=== PATIENT | male | born 1960 | race Caucasian/White ===

== ENCOUNTER → 2024-08-13 13:44 | Outpatient (REF) | payer OTHER, SELFPAY | LOC: EMG 13:44 | PROVIDERS: ATTENDING PHYSICIAN Orthopaedic Surgery; FAMILY PHYSICIAN Family Medicine | DX: R20.0 Anesthesia of skin (principal) | CPT/HCPCS: 95886; 95911 ==

== ENCOUNTER → 2024-09-24 07:08 | Outpatient (REF) | payer MEDICARE, SELFPAY | LOC: PAVMRI 07:08 | PROVIDERS: ATTENDING PHYSICIAN Orthopaedic Surgery; FAMILY PHYSICIAN Family Medicine | DX: M54.12 Radiculopathy, cervical region (principal) | CPT/HCPCS: 72141 ==

== ENCOUNTER 2025-08-30 17:27 | Day surgery (SDC) | payer MEDICARE, SELFPAY ==
[2025-08-30] VITALS (9 sets, daily range): BP systolic 107–145; BP diastolic 67–76; BMI 25.9
--- NOTE | 2025-08-30 10:42 | ED.GENMED ---
History of Present Illness
<Viktor Beltran PA-C - Last Filed: 08/30/25 14:41>
General
Chief Complaint: Chest Pain
Source: patient
Exam Limitations: none
Time Seen by Provider: 08/30/25 10:31
History of Present Illness
History of Present Illness:
64-year-old male presents complaining of ongoing chest discomfort. 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 He notes ongoing symptoms since then. He has a history of coronary artery disease. He had a
catheterization 5 years ago. Symptoms are in the center of his chest without radiation. He denies shortness of breath. Pain is not pleuritic. No recent extended travel or surgery. He took a baby aspirin this morning. He saw the cardiology team
today as an outpatient but was sent here for further evaluation.
Past History
<Viktor Beltran PA-C - Last Filed: 08/30/25 14:41>
Past History
ED Past Medical History: GERD and Hypercholesterolemia
Social History
Tobacco: Non-smoker
Personal:
Living: with family
Phy Exam
<Viktor Beltran PA-C - Last Filed: 08/30/25 14:41>
Physical Exam
Physical Exam:
General: Well-appearing male no acute respiratory distress HEENT: Normal cephalic atraumatic
Heart: Regular rate and rhythm
Lungs: Clear no wheeze
Extremities: No cyanosis or edema
Skin warm no rash
Scores
<Viktor Beltran PA-C - Last Filed: 08/30/25 14:41>
Heart Score for Chest Pain Patients
STEMI patient?: No
History: Moderately Suspicious
ECG: Normal
Age: >/= 65 years
Risk Factors: >/= 3 Risk Factors or History of CAD
Troponin: </= Normal Limit
Heart Score for Chest Pain Patients: 5
Heart Score Risk: 20.3% MACE over next 6 weeks
Course
<Viktor Beltran PA-C - Last Filed: 08/30/25 14:41>
Orders/Labs/Results
Orders:
Orders
08/30/25 Lunch
NPO
Allow oral meds: Yes
Allow clear liquids: No
08/30/25 10:06
ECG [Electrocardiogram (*1)] Urgent
Reason for Study: Chest Pain
EKG- Treatment ONCE
08/30/25 10:40
Aspirin Chewable [Low Strength Aspirin] 243 mg PO NOW STA
08/30/25 10:45
Heparin 48110 Units/250 ml 25,000 units in 250 ml .ROUTE .STK-MED
08/30/25 10:48
Heparin 4,000 units IV NOW STA
08/30/25 10:51
Complete Blood Count/With Diff Urgent
Comprehensive Metabolic Panel Urgent
PTT Urgent
Comment: Obtain baseline before beginning heparin infusion if not already collected
Troponin I Urgent
Nitroglycerin Sublingual [Nitrostat (Sublingual)] 0.4 mg SL [id number] PRN
08/30/25 11:00
Heparin 30114 Units/250 ml 25,000 units in 250 ml IV PER PROTOCOL
Weight to be used for heparin protocol in kilograms (kg):: 77.3
Protocol:: Cardiac Tx/Acute Coronary
PTT Goal Range to be used:: PTT 73 to 111 seconds
Order type:: Initial
INITIAL Infusion Dose (UNITS/KG/hr) & then follow protocol:: 12 units/kg/hr
Infusion Dose in UNITS/hr & then follow protocol (UNITS/hr):: 950
INFUSION RATE in mL/hr & then follow protocol (mL/hr):: 9.5
PTT less than or equal to 64 seconds:: Increase rate by 200 units/hr (+ 2 mL/hr)
PTT 64.1 to 72.9 seconds:: Increase rate by 100 units/hr (+ 1 mL/hr)
PTT 73 to 111 seconds:: Target Range. No change in rate.
PTT 111.1 to 130.9 seconds:: Decrease rate by 100 units/hr (- 1 mL/hr)
PTT 131 to 199.9 seconds:: HOLD for 1 hr. Then decrease rate by 200 units/hr (- 2 mL/hr)
PTT greater than or equal to 200 seconds:: HOLD for 2 hrs & Notify Provider. Then decrease by 200 units/hr (-
2 mL/hr)
Lab follow-up:: Each change, PTT q6h until 2 consecutive are therapeutic. Then PTT
daily.
08/30/25 11:27
Admit/Transfer Patient As Directed
Co-Sign Provider:
Level of Care: Post Proc/Surg Recovery
Assign to:: IVU
Physician / Group: Ton
Diagnosis: unstable angina
Expected length of stay greater than two midnights?: No
Reason for Overnight Stay: Standard of Care
PRN Pain Medication Management As Directed
May give lesser potent ordered pain med per pt: Yes
preference::
Protocol:: Medication orders for pain may be administered in a
manner that supports deferring to patient preference
when the pt is:
-Requesting an ordered lesser potent pain medication.
Least to most potent pain medications are defined as:
acetaminophen < NSAID < tramadol < opioids (morphine,
oxycodone, hydromorphone).
- Requesting a lesser dose of the same medication IF
ORDERED.
- Requesting a less intrusive route of administration
if both routes are prescribed by the provider (PO <
IV).
08/30/25 14:15
Vital Signs As Directed
Frequency: Per unit guidelines
08/30/25 17:35
PTT Urgent
Abnormal Lab Results
08/30/25
10:51
Absolute Monos (auto) 0.7 H 10^3/uL
(0.1-0.6)
Lymphocytes % 16.8 L %
(20.5-51.1)
BUN 24 H mg/dl
(9-20)
08/30/25 10:51
08/30/25 10:51
Vital Signs
Initial and Last Documented VS:
Initial Vital Signs
Temp Pulse Resp BP Pulse Ox
98.1 F 54 18 145/72 100
08/30/25 10:03 08/30/25 10:03 08/30/25 10:03 08/30/25 10:03 08/30/25 10:03
Last Documented Vital Signs
Temp Pulse Resp BP Pulse Ox
98.1 F 65 12 135/74 98
08/30/25 10:03 08/30/25 13:00 08/30/25 13:00 08/30/25 12:00 08/30/25 13:00
<Jimbo Bush, DO - Last Filed: 08/30/25 11:17>
Orders/Labs/Results
Orders:
Orders
08/30/25 Lunch
NPO
Allow oral meds: Yes
Allow clear liquids: No
08/30/25 10:06
ECG [Electrocardiogram (*1)] Urgent
Reason for Study: Chest Pain
EKG- Treatment ONCE
08/30/25 10:40
Aspirin Chewable [Low Strength Aspirin] 243 mg PO NOW STA
08/30/25 10:45
Heparin 38332 Units/250 ml 25,000 units in 250 ml .ROUTE .STK-MED
08/30/25 10:48
Heparin 4,000 units IV NOW STA
08/30/25 10:51
Complete Blood Count/With Diff Urgent
Comprehensive Metabolic Panel Urgent
PTT Urgent
Comment: Obtain baseline before beginning heparin infusion if not already collected
Troponin I Urgent
Nitroglycerin Sublingual [Nitrostat (Sublingual)] 0.4 mg SL [id number] PRN
08/30/25 11:00
Heparin 99827 Units/250 ml 25,000 units in 250 ml IV PER PROTOCOL
Weight to be used for heparin protocol in kilograms (kg):: 77.3
Protocol:: Cardiac Tx/Acute Coronary
PTT Goal Range to be used:: PTT 73 to 111 seconds
Order type:: Initial
INITIAL Infusion Dose (UNITS/KG/hr) & then follow protocol:: 12 units/kg/hr
Infusion Dose in UNITS/hr & then follow protocol (UNITS/hr):: 950
INFUSION RATE in mL/hr & then follow protocol (mL/hr):: 9.5
PTT less than or equal to 64 seconds:: Increase rate by 200 units/hr (+ 2 mL/hr)
PTT 64.1 to 72.9 seconds:: Increase rate by 100 units/hr (+ 1 mL/hr)
PTT 73 to 111 seconds:: Target Range. No change in rate.
PTT 111.1 to 130.9 seconds:: Decrease rate by 100 units/hr (- 1 mL/hr)
PTT 131 to 199.9 seconds:: HOLD for 1 hr. Then decrease rate by 200 units/hr (- 2 mL/hr)
PTT greater than or equal to 200 seconds:: HOLD for 2 hrs & Notify Provider. Then decrease by 200 units/hr (-
2 mL/hr)
Lab follow-up:: Each change, PTT q6h until 2 consecutive are therapeutic. Then PTT
daily.
08/30/25 11:27
Admit/Transfer Patient As Directed
Co-Sign Provider:
Level of Care: Post Proc/Surg Recovery
Assign to:: IVU
[facility]
Diagnosis: unstable angina
Expected length of stay greater than two midnights?: No
Reason for Overnight Stay: Standard of Care
PRN Pain Medication Management As Directed
May give lesser potent ordered pain med per pt: Yes
preference::
Protocol:: Medication orders for pain may be administered in a
manner that supports deferring to patient preference
when the pt is:
-Requesting an ordered lesser potent pain medication.
Least to most potent pain medications are defined as:
acetaminophen < NSAID < tramadol < opioids (morphine,
oxycodone, hydromorphone).
- Requesting a lesser dose of the same medication IF
ORDERED.
- Requesting a less intrusive route of administration
if both routes are prescribed by the provider (PO <
IV).
08/30/25 14:15
Vital Signs As Directed
Frequency: Per unit guidelines
08/30/25 17:35
PTT Urgent
Abnormal Lab Results
08/30/25
10:51
Absolute Monos (auto) 0.7 H 10^3/uL
(0.1-0.6)
Lymphocytes % 16.8 L %
(20.5-51.1)
BUN 24 H mg/dl
(9-20)
08/30/25 10:51
08/30/25 10:51
Vital Signs
Initial and Last Documented VS:
Initial Vital Signs
Temp Pulse Resp BP Pulse Ox
98.1 F 54 18 145/72 100
08/30/25 10:03 08/30/25 10:03 08/30/25 10:03 08/30/25 10:03 08/30/25 10:03
Last Documented Vital Signs
Temp Pulse Resp BP Pulse Ox
98.1 F 65 12 135/74 98
08/30/25 10:03 08/30/25 13:00 08/30/25 13:00 08/30/25 12:00 08/30/25 13:00
<Viktor Beltran PA-C - Last Filed: 08/30/25 14:41>
MDM/Problems Addressed
Differential Diagnosis Includes:
Patient with ongoing chest discomfort with history coronary artery disease presented in referral from cardiology office for admission and for him to be taken to the [facility]. EKG on triage here shows sinus bradycardia without ischemic changes.
Labs pending including troponin. Contacted cardiology who said heparin.
<Viktor Beltran PA-C - Last Filed: 08/30/25 14:41>
*Pulse Oximetry
SaO2: 100
Oxygen Mode of Delivery: Room air
Patient hypoxic: no
*Critical Care Note
Total Time (30-74mins, 75-104mins- exclusive of procedures): Not Applicable
ED Attending Note
<Viktor Beltran PA-C - Last Filed: 08/30/25 14:41>
-
Portions of this chart may have been created with voice recognition software.� Occasional wrong word or��sound alike� substitutions may have occurred due to the inherent limitations of voice recognition software.
<Jimbo Bush DO - Last Filed: 08/30/25 11:17>
ED Attending Note
Patient seen and examined by attending physician: Yes
I performed the substantive portion of visit, reviewed & personally made and approve the management plan that is documented in note by myself or KIYA.: Yes
ED Attending Note:
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
Discharge Plan
Departure
Patient Disposition: Admit
Date of Disposition: 08/30/25
Time of Disposition: 10:48
Presentation/result/management discussed w/ accepting MD/DO: Ton
Discharge Problem:
Chest pain
Prescriptions:
No Action
fluoxetine 20 MG capsule
20 mg PO DAILY
acetaminophen [Tylenol Extra Strength] 500 MG tablet
1,000 mg PO Q6HPRN PRN (Reason: mild pain)
calcium carbonate [Antacid (calcium carbonate)] 1 TABLET tablet,chewable
1 tab PO Q6HPRN PRN (Reason: heartburn)
aspirin 81 MG tablet,chewable
81 mg PO DAILY 0RF
rosuvastatin 40 MG tablet
40 mg PO QPM Qty: 90 5RF
nitroglycerin 0.4 MG tablet, sublingual
0.4 mg sublingual [id number] PRN (Reason: chest pain) Qty: 25 5RF
Theragen Tablet
1 tab PO DAILY
ezetimibe [Zetia] 10 mg Tablet
10 mg PO DAILY
Referrals:
Nilo Sim MD [Active, Cardiology] - 10/02/25 8:40 am
Sudhakar Lawrence MD [Family Provider, Family Practice]
Interventions
Interventions:
*Risk Screen - Suicide Last Done: 08/30/25 10:03
*General Assessment Last Done: 08/30/25 13:27
*Neglect/Abuse Screening Last Done: 08/30/25 11:49
*ED COVID-19 Vaccine History Last Done: 08/30/25 11:49
*ED Influenza Vaccine History Last Done: 08/30/25 10:03
[facility] Fall Risk Assessment Tool Last Done: 08/30/25 11:49
ED- Cardiac Assessment Last Done: 08/30/25 11:49
Discharge Date and Time
Print Language: MALAYSIAN
[2025-08-30] MEDS: LOW STRENGTH ASPIRIN 243 MG PO (10:49)
--- NOTE | 2025-08-30 11:08 | W.PN.CD ---
Today's Communication / Plan
-
LHC today
Impression / Plan
-
*See History and Physical by Dr. Abdalla from office visit today, 08/30/25, scanned into his chart.
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
- pain has persisted, is now 1-2/, with associated SOB.
- this pain is his anginal equivalent from 12/2020 when he had a proximal RCA PCI.
- received ASA 324mg in ER, starting IV Heparin and given SL NTG.
- plan for [facility] today.
- troponin and labs pending.
- EKG from office visit today with SB 59 bpm.
CAD - s/p proximal RCA PCI 01/15/2021.
- compliant with ASA, Zetia, Crestor.
- no BB due to baseline bradycardia.
HLD - on Crestor and Zetia.
- lipid profile 12/20/24: TC 125, TG 143, HDL, 40, LDL 62.
- check lipids, LDL goal < 55.
PreDM - HgbA1C 6.1%.
- lifestyle/dietary modifications.
- managed by his PCP Dr. Argueta
Physical Exam
Vital Signs/Labs
Vital Signs
Temp Pulse Resp BP Pulse Ox
98.1 F 54 18 145/72 100
08/30/25 10:03 08/30/25 10:03 08/30/25 10:03 08/30/25 10:03 08/30/25 10:44
08/29/25 08/30/25 08/31/25
06:59 06:59 06:59
Actual Weight 170 lb 6.677 oz
Physical Exam
Constitutional: No acute distress and Comfortable
EENT: Anicteric and Moist mucous membranes
Cardiovascular: Rhythm & rate is regular
Respiratory: Respiratory effort normal and Lungs clear to auscul.
GI: Soft, Non tender and Normal bowel sounds
Neuro/Psych: AO x 3
Other: Skin (warm, dry)
Data Reviewed
-
Date of Service: August 30, 2025
Medical Decision Making: Reviewed Test Results
EKG: Tracing Personally Visualized and interpreted (Sinus lesley 59 bpm)
Echo: Report Reviewed by me (01/16/21: EF 57%, no sig valve disease)
[2025-08-30 11:19] LABS: Hematocrit 43.7 % (39.0-52.0); Hemoglobin 14.9 g/dL (13.0-18.0); Mean Corp Hgb Conc. 34.1 g/dL (33.0-37.0); Mean Corpuscular Volume 87.1 fL (80.0-94.0); Nucleated Red Blood Cells % 0 % (-); Platelet Count 258 10^3/uL (130-400); Red Cell Dist. Width 12.0 % (11.5-14.5)
[2025-08-30 11:21] LABS: APTT 28.7 Sec (23.4-35.0)
[2025-08-30 11:28] LABS: ALT (SGPT) 34 U/L (0-50); AST (SGOT) 36 U/L (17-59); Albumin 4.2 g/dl (3.5-5.0); Alkaline Phosphatase 55 U/L (38-126); Blood Urea Nitrogen 24 mg/dl (9-20); Calcium 9.0 mg/dl (8.4-10.2); Carbon Dioxide 28 mmol/L (22-30); Chloride 103 mmol/L (98-107); Estimated Creatinine Clearance 59 ml/min; Glucose 90 mg/dl (70-99); Potassium 4.3 mmol/L (3.5-5.1); Sodium 137 mmol/L (135-145); Total Protein 6.8 g/dl (6.3-8.2); eGFR > 60.00
[2025-08-30] MEDS: HEPARIN 25000 UNITS/250 ML IV (11:35)
[2025-08-30] MEDS: HEPARIN 4000 UNITS IV (11:35)
[2025-08-30 11:39] LABS: Troponin I < 0.012 ng/ml
--- NOTE | 2025-08-30 17:10 | CM ---
jose davis- tricegrelor at [facility]- his copay is $145/mo. his deductible will re start in Sep. [facility] but [facility] [address] [facility].
--- NOTE | 2025-08-30 17:24 | CM ---
Met with and Mrs. Corbin to review discharge plans. He states prior to admission he resides with his spouse in a one story home with two steps to enter. He states he has a basement. He states prior to admission he was independent with
ambulation and adls. He states he does not have any DME in the home. He states he has a prescription plan with [facility] and uses [facility]. Medical work-up in progress. The discharge plan is to return home with his spouse when medically
stable.
--- NOTE | 2025-08-30 17:30 | W.DS.TRANS ---
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
-
Discharge Instructions:
Discharge Diagnosis/Procedures Cardiac cath
Diet Low Cholesterol
Driving Restrictions No driving for 24 hours
Instructions:
Stand-Alone Forms: DC Instructions- Cath/EP Lab
Changes to Home Medications: No
Discharge Medications:
DC Medications w/original date entered in [facility]
acetaminophen 500 mg tablet (Tylenol Extra Strength) 1,000 mg PO Q6HPRN PRN mild pain 01/15/21
calcium carbonate (Antacid (calcium carbonate)) 1 tab PO Q6HPRN PRN heartburn 01/15/21
fluoxetine 20 mg capsule 20 mg PO DAILY Mental Health/Anxiety 01/15/21
aspirin 81 mg chewable tablet 81 mg PO DAILY 01/16/21
nitroglycerin 0.4 mg sublingual tablet 0.4 mg sublingual [id number] PRN chest pain #25 tabs 01/16/21
rosuvastatin 40 mg tablet 40 mg PO QPM #90 tabs 01/16/21
ezetimibe 10 mg tablet (Zetia) 10 mg PO DAILY 08/30/25
therapeutic multivitamin 1 tab PO DAILY 08/30/25
Home Medication Changes
Pending Results: No
[2025-08-30 17:37] LABS: Troponin I < 0.012 ng/ml
--- NOTE | 2025-08-30 18:36 | ITS.CL.PN ---
Electronics Repair Technician - Procedure Note
Procedure
Procedure Note:
CARDIAC CATHETERIZATION REPORT
Date of Procedure: 08/30/2025
Referring: Dr. Cordell Camilo MD, PhD
Indication: Chest pain, concern for ACS
PROCEDURE(S)
1. left heart catheterization
2. coronary angiography
ACCESS: 6F right radial artery (closure: radial band)
CATHETERS
1. 6F JR4
2. 6F JL3.5
MODERATE SEDATION: 25 minutes of moderate sedation was utilized. An independent medical resident was present to assist with and help manage the patient's level of consciousness and physiologic status.
HEMODYNAMIC DATA
LV 116/6 (EDP 14) mmHg
AO 109/67 (mean 89) mmHg
CORONARY ANGIOGRAPHY
Dominance: right
LM: Long, normal vessel.
LAD: Large vessel giving rise to a large high rising diagonal branch and wrapping around the apex. There are trivial luminal irregularities only.
LCx: Moderate caliber vessel giving rise to a single marginal branch. There is diffuse mild up to 35% disease in the proximal aspect of the marginal branch visually stable from prior angiography.
RCA: Large vessel giving rise to moderate caliber RPDA and moderate caliber RPL branch. There is a widely patent stent in the proximal RCA and otherwise mild luminal irregularities only.
RADIATION: dose 171 mGy; DAP 10 point Gy*cm2; fluoroscopy time 2.3 min
CONCLUSIONS
1. Coronary artery disease as described with widely patent RCA stent and otherwise nonobstructive disease stable from prior angiography.
2. Normal LV filling pressure and no aortic stenosis
RECOMMENDATIONS
1. Aggressive secondary prevention of coronary artery disease
2. Workup for etiology of chest pain not related to epicardial coronary artery disease
Copy to: Dr. Zachery Sim MD (special services director); Dr. Sudhakar Lawrence MD (PCP)
Signed: Chun Valdez MD, PhD
--- NOTE | 2025-08-30 18:42 | PTCARENOTE ---
Pt reports seeing flashes of lights, Dr Valdez notified, Pt encouraged to drink fluids as this may be caused from the dye.
--- NOTE | 2025-08-30 19:17 | PTCARENOTE ---
Pt still seeing flashes, it started to resolve but now it's back again, Dr Valdez notified and came to see Pt.
[2025-08-30] MEDS: ZETIA 10 MG PO (20:17)
[2025-08-30] MEDS: CRESTOR 40 MG PO (20:17)
--- NOTE | 2025-08-30 20:27 | PTCARENOTE ---
Assumed care on pt at 1900, aaox3, R band intact to right wrist, no bleeding or swelling noted. Pt with some complaints of 'flashy vision' changes and some numbness across right thumb. Dr. Valdez made aware, at bedside to assess pt. Will monitor
for one hour and if not resolved will admit overnight and possible MRI. R band off at 2019, gauze and Tegaderm applied, pt stating that vision is back to normal, some numbness remain right thumb. Dr. Valdez made aware again. Will d/c pt tonight.
--- NOTE | 2025-08-30 21:13 | PTCARENOTE ---
Pt d/c , present driving pt home. Medication and d/c instruction reviewed with pt and spouse, both voicing understanding.
== END 2025-08-30 21:00 | disposition home or self-care (01) ==
LOC: CATH 17:27
PROVIDERS: Nurse Practitioner; Physician Assistant; ATTENDING PHYSICIAN Internal Medicine; EMERGENCY PHYSICIAN Emergency Medicine; FAMILY PHYSICIAN Family Medicine
DX: R07.9 Chest pain, unspecified (principal); I25.10 Atherosclerotic heart disease of native coronary artery without angina pectoris; Z95.5 Presence of coronary angioplasty implant and graft; R73.03 Prediabetes; K58.9 Irritable bowel syndrome, unspecified; K29.70 Gastritis, unspecified, without bleeding; I10 Essential (primary) hypertension; K21.9 Gastro-esophageal reflux disease without esophagitis; Z79.82 Long term (current) use of aspirin; Z79.899 Other long term (current) drug therapy; E78.00 Pure hypercholesterolemia, unspecified
CPT/HCPCS: 99152; 99153; 80053; 84484; 85025; 85730; 93005; 93458; 96365; 96366; 99284; C1769; Q9967